=== PATIENT | male | born 1965 | race Caucasian/White ===

== ENCOUNTER 2018-08-13 18:35 | Emergency (ER) | payer OTHER ==
[2018-08-13] MEDS: CLINDAMYCIN 150 MG CAP PO (19:54)
== END 2018-08-13 19:56 | disposition home or self-care (01) ==
LOC: M ED 18:35
DX: L03.114 Cellulitis of left upper limb (principal)
CPT/HCPCS: 99283

== ENCOUNTER → 2021-12-08 | Outpatient (REF) | payer OTHER ==
[~2021-12-08] MED LIST: CLEO300C2 PO; MULT1TAB18 PO
[2021-12-08 17:27] LABS: APPEARANCE, URINE CLEAR (CLEAR); BACTERIA, URINE AUTO NEGATIVE (NEGATIVE); BILIRUBIN, URINE AUTO NEGATIVE (NEGATIVE); BLOOD, URINE BLOOD NEGATIVE (NEGATIVE); COLOR, URINE STRAW (YELLOW); GLUCOSE, URINE (UA) AUTO NEGATIVE (NEGATIVE); KETONE, URINE AUTO NEGATIVE (NEGATIVE); LEUKOCYTE ESTERASE, URINE AUTO NEGATIVE (NEGATIVE); NITRITE, URINE AUTO NEGATIVE (NEGATIVE); PROTEIN, URINE AUTO NEGATIVE (NEGATIVE); RBC, URINE AUTO 0 /HPF (0-3); SQUAMOUS EPITHELIAL CELL UR AU 0 /HPF (0-6); UROBILINOGEN, URINE AUTO 0.2 mg/dL (0.0-2.0); WBC, URINE AUTO 0 /HPF (0-3)
== END ==
LOC: M SMT 16:38
PROVIDERS: ATTEND Physician Assistant
DX: R35.1 Nocturia (principal)

== ENCOUNTER 2022-01-09 14:18 | Emergency (ER) | payer OTHER ==
[~2022-01-09] VITALS: Ht 180.3 cm; Wt 131.6 kg
[~2022-01-09 14:18] MED LIST changes: -LOSA50TA28; -TAMS1CAP17
[2022-01-09] MEDS ORDERED: LOSA50TA28 (14:43)
[2022-01-09] MEDS ORDERED: TAMS1CAP17 (14:43)
[2022-01-09 15:18] LABS: BASO # 0.1 10^3/uL (0.0-0.2); EOS # 0.2 10^3/uL (0.0-0.5); EOS % 2.6 % (0.0-3.0); HEMATOCRIT 43.1 % (42.0-52.0); HEMOGLOBIN 14.3 g/dl (13.5-17.5); LYMPH # 1.8 10^3/uL (1.5-5.0); LYMPH % 30.1 % (24.0-44.0); MEAN CORPUSCULAR HEMOGLOBIN 28.9 pg (27.0-33.0); MEAN CORPUSCULAR HGB CONC 33.2 g/dl (32.0-36.5); MEAN CORPUSCULAR VOLUME 87.1 fl (80.0-96.0); MONO # 0.6 10^3/uL (0.0-0.8); MONO % 9.8 % (2.0-8.0); NEUTROPHILS # 3.5 10^3/uL (1.5-8.5); NEUTROPHILS % 56.3 % (36.0-66.0); PLATELET COUNT, AUTOMATED 222 10^3/uL (150-450); RED BLOOD COUNT 4.95 10^6/uL (4.30-6.10); WHITE BLOOD COUNT 6.1 10^3/uL (4.0-10.0)
[2022-01-09 15:29] LABS: INR 0.93; PROTHROMBIN TIME 12.9 SECONDS (12.7-14.5)
[2022-01-09 15:39] LABS: CK-MB VALUE MASS < 1.0 NG/ML (<3.6); CPK CREATINE PHOSPHOKINASE 129 U/L (39-308); MB/CK RELATIVE INDEX 0.78 (< OR =4)
[2022-01-09 15:58] LABS: ALBUMIN 3.9 GM/DL (3.2-5.2); ALT/SGPT 42 U/L (12-78); BILIRUBIN,DIRECT 0.1 MG/DL (0.0-0.2); BILIRUBIN,TOTAL 0.7 MG/DL (0.2-1.0); BLOOD UREA NITROGEN 19 MG/DL (7-18); CALCIUM LEVEL 9.1 MG/DL (8.5-10.1); CARBON DIOXIDE LEVEL 32 MEQ/L (21-32); CHLORIDE LEVEL 103 MEQ/L (98-107); CREATININE FOR GFR 1.22 MG/DL (0.70-1.30); GLOMERULAR FILTRATION RATE > 60.0 (>56); GLUCOSE, FASTING 89 MG/DL (70-100); POTASSIUM SERUM 4.2 MEQ/L (3.5-5.1); SODIUM LEVEL 139 MEQ/L (136-145)
[2022-01-09 15:59] LABS: NT-PRO BNP 33 PG/ML (<125); THYROXINE (T4) 10.9 UG/DL (4.5-12.0)
[2022-01-09 17:30] VITALS: BP 151/101
[2022-01-09] MEDS ORDERED: ISOVUE-370 76% 100ML VIAL As Ordered ONE (18:49)
== END 2022-01-09 21:15 | disposition home or self-care (01) ==
LOC: M ED 14:18
DX: R06.09 Other forms of dyspnea (principal); E78.5 Hyperlipidemia, unspecified; Z79.899 Other long term (current) drug therapy
CPT/HCPCS: 36415; 71045; 71275; 80048; 80076; 82550; 82553; 83880; 84436; 84443; 85025; 85610; 93005; 93041; 94760; 99285; Q9967

== ENCOUNTER → 2022-01-09 | Outpatient (CLI) | payer OTHER ==
[~2022-01-09] MED LIST changes: +LOSA50TA28; +TAMS1CAP17
== END ==
LOC: M PLALAB 07:07
PROVIDERS: ATTEND Physician Assistant
DX: R06.02 Shortness of breath (principal)

== ENCOUNTER → 2022-01-20 | Outpatient (CLI) | payer OTHER ==
[~2022-01-20] MED LIST changes: +LOSA50TA28; +TAMS1CAP17
== END ==
LOC: M PLALAB 07:08 → M LAB 07:08
PROVIDERS: ATTEND Physician Assistant
DX: R97.20 Elevated prostate specific antigen [PSA] (principal)

== ENCOUNTER → 2022-02-14 | Outpatient (CLI) | payer OTHER ==
[~2022-02-14] MED LIST changes: -LOSA50TA28; +LOSA50TA28 PO; -TAMS1CAP17; +TAMS1CAP17 PO
[2022-02-14 15:56] LABS: ALBUMIN 3.7 GM/DL (3.2-5.2); BLOOD UREA NITROGEN 20 MG/DL (7-18); CALCIUM LEVEL 8.7 MG/DL (8.5-10.1); CARBON DIOXIDE LEVEL 28 MEQ/L (21-32); CHLORIDE LEVEL 103 MEQ/L (98-107); CREATININE FOR GFR 1.29 MG/DL (0.70-1.30); GLOMERULAR FILTRATION RATE > 60.0 (>56); GLUCOSE, FASTING 101 MG/DL (70-100); HEPATITIS B SURFACE ANTIBODY NEGATIVE (POSITIVE); IRON (FE) 72 UG/DL (65-175); PERCENT SATURATION 25.4 % (19.7-50.0); PHOSPHORUS LEVEL 2.9 MG/DL (2.5-4.9); POTASSIUM SERUM 5.4 MEQ/L (3.5-5.1); SODIUM LEVEL 138 MEQ/L (136-145); TOTAL IRON BINDING CAPACITY 283 UG/DL (250-450)
[2022-02-14 16:05] LABS: HEPATITIS B SURFACE ANTIGEN NEGATIVE (NEGATIVE)
[2022-02-14 16:32] LABS: HEPATITIS B CORE ANTIBODY IGM NEGATIVE (NEGATIVE); HEPATITIS C VIRUS ABY INDEX 0.2 INDEX (<0.8)
== END ==
LOC: M PLALAB 09:24
PROVIDERS: ATTEND Physician Assistant
DX: R74.8 Abnormal levels of other serum enzymes (principal); I10 Essential (primary) hypertension

== ENCOUNTER → 2022-02-14 | Outpatient (REF) | payer OTHER | LOC: M SMT PRO 13:03 | PROVIDERS: ATTEND Urology | DX: R97.20 Elevated prostate specific antigen [PSA] (principal) ==

== ENCOUNTER 2022-02-23 22:19 | Inpatient (IN) | payer OTHER ==
[~2022-02-23] VITALS: Ht 180.3 cm; Wt 117.6 kg
[2022-02-23] MEDS: NS 1,000 ML IV SCH (22:15)
[2022-02-23] MEDS ORDERED: ONDANSETRON 4MG 2ML VIAL IV ONE (22:30)
[2022-02-23] MEDS ORDERED: MORPHINE 4 MG/ML 1ML VIAL/SYRINGE IV ONE (22:30)
[2022-02-23] MEDS ORDERED: ONDANSETRON 4MG 2ML VIAL As Ordered ONE (22:34)
[2022-02-23] MEDS ORDERED: BOOSTRIX/ADACEL VACCINE (DIPHTH/PERTUSS/ACELL/TETANUS) 0.5ML SYR IM.IMMUN ONE (22:35)
[2022-02-23] MEDS ORDERED: ISOVUE-370 76% 100ML VIAL As Ordered ONE (22:48)
[2022-02-23 23:04] LABS: INR 1.25; PROTHROMBIN TIME 16.1 SECONDS (12.7-14.5)
[2022-02-23] MEDS ORDERED: fentaNYL 100 MCG/2 ML INJECTION IV ONE (23:05)
[2022-02-23 23:10] LABS: BASO # 0.1 10^3/uL (0.0-0.2); BASO % 0.5 % (0.0-1.0); EOS # 0.2 10^3/uL (0.0-0.5); EOS % 1.4 % (0.0-3.0); HEMATOCRIT 41.4 % (42.0-52.0); HEMOGLOBIN 13.8 g/dl (13.5-17.5); LYMPH # 2.7 10^3/uL (1.5-5.0); LYMPH % 17.4 % (24.0-44.0); MEAN CORPUSCULAR HEMOGLOBIN 29.2 pg (27.0-33.0); MEAN CORPUSCULAR HGB CONC 33.3 g/dl (32.0-36.5); MEAN CORPUSCULAR VOLUME 87.5 fl (80.0-96.0); MONO # 1.1 10^3/uL (0.0-0.8); MONO % 6.9 % (2.0-8.0); NEUTROPHILS # 11.2 10^3/uL (1.5-8.5); NEUTROPHILS % 72.4 % (36.0-66.0); PLATELET COUNT, AUTOMATED 272 10^3/uL (150-450); RED BLOOD COUNT 4.73 10^6/uL (4.30-6.10); WHITE BLOOD COUNT 15.4 10^3/uL (4.0-10.0)
[2022-02-23 23:25] LABS: ALBUMIN 3.6 GM/DL (3.2-5.2); ALT/SGPT 56 U/L (12-78); AMYLASE 39 U/L (25-115); BILIRUBIN,DIRECT < 0.1 MG/DL (0.0-0.2); BILIRUBIN,TOTAL 0.4 MG/DL (0.2-1.0); ETHYL ALCOHOL (ETHANOL) < 0.003 % (0.000-0.010); LIPASE 223 U/L (73-393); TOTAL PROTEIN 7.3 GM/DL (6.4-8.2)
[2022-02-23 23:29] LABS: CK-MB VALUE MASS 3.9 NG/ML (<3.6); MB/CK RELATIVE INDEX 0.97 (< OR =4)
[2022-02-23] MEDS ORDERED: HYDROMORPHONE HCL 0.5 MG/ 0.5 ML SYRINGE (J1170 PER 1) IV ONE (23:55)
[2022-02-24] VITALS (22 sets, daily range): BP systolic 123–158; BP diastolic 83–104; O2SAT 94–98
[2022-02-24 00:27] LABS: AMPHETAMINES LEVEL URINE NEGATIVE (NEGATIVE); BARBITURATES URINE NEGATIVE (NEGATIVE); BENZODIAZEPINES URINE NEGATIVE (NEGATIVE); CANNABINOIDS URINE NEGATIVE (NEGATIVE); COCAINE METABOLITE URINE NEGATIVE (NEGATIVE); METHADONE URINE NEGATIVE (NEGATIVE); OPIATES URINE POSITIVE (NEGATIVE); PHENCYCLIDINE URINE NEGATIVE (NEGATIVE)
[2022-02-24 00:34] LABS: APPEARANCE, URINE HAZY (CLEAR); BACTERIA, URINE AUTO NEGATIVE (NEGATIVE); BILIRUBIN, URINE AUTO NEGATIVE (NEGATIVE); BLOOD, URINE BLOOD 1+ (NEGATIVE); COLOR, URINE YELLOW (YELLOW); GLUCOSE, URINE (UA) AUTO NEGATIVE (NEGATIVE); KETONE, URINE AUTO TRACE mg/dL (NEGATIVE); LEUKOCYTE ESTERASE, URINE AUTO NEGATIVE (NEGATIVE); MUCUS, URINE SMALL (NEGATIVE); NITRITE, URINE AUTO NEGATIVE (NEGATIVE); PROTEIN, URINE AUTO 1+ mg/dL (NEGATIVE); RBC, URINE AUTO 5 /HPF (0-3); SPECIFIC GRAVITY URINE AUTO 1.021 (1.002-1.035); SQUAMOUS EPITHELIAL CELL UR AU 0 /HPF (0-6); UROBILINOGEN, URINE AUTO 0.2 mg/dL (0.0-2.0); WBC, URINE AUTO 4 /HPF (0-3)
[2022-02-24] MEDS ORDERED: SILVER SULFADIAZINE 1% CR 50 GM JAR TOP ONE (00:40)
[2022-02-24 01:40] LABS: RSV AMPLIFICATION NEGATIVE (NEGATIVE)
[2022-02-24] MEDS: NS 1,000 ML IV SCH ×4 (02:25→22:44)
[2022-02-24] MEDS ORDERED: ONDANSETRON 4MG 2ML VIAL IV PRN (02:50)
[2022-02-24] MEDS ORDERED: NALOXONE INJ 0.4MG/1ML VIAL (J2310 PER 1MG) IV PRN (02:50)
[2022-02-24] MEDS ORDERED: EPIDURAL/PCA KEYS XX PRN (02:50)
[2022-02-24] MEDS ORDERED: diphenhydrAMINE 50MG/ML VIAL (J1200) IV PRN (02:50)
[2022-02-24] MEDS ORDERED: NS 1,000 ML IV SCH (02:50)
[2022-02-24] MEDS ORDERED: HOME MED LIST COMPLETE! XX SCH (02:55)
[2022-02-24] MEDS: MORPHINE 1MG/ML IN 0.9% NACL 100ML IV BAG IV PRN (03:35)
[2022-02-24] MEDS: KETOROLAC 30 MG/ML 1ML VIAL IV SCH ×4 (04:48→21:02)
[2022-02-24 06:14] LABS: HEMATOCRIT 42.5 % (42.0-52.0); MEAN CORPUSCULAR HEMOGLOBIN 29.5 pg (27.0-33.0); MEAN CORPUSCULAR HGB CONC 32.9 g/dl (32.0-36.5); MEAN CORPUSCULAR VOLUME 89.7 fl (80.0-96.0); PLATELET COUNT, AUTOMATED 266 10^3/uL (150-450); RED BLOOD COUNT 4.74 10^6/uL (4.30-6.10); WHITE BLOOD COUNT 13.2 10^3/uL (4.0-10.0)
[2022-02-24 06:41] LABS: CREATININE FOR GFR 1.38 MG/DL (0.70-1.30); GLOMERULAR FILTRATION RATE 57.2 (>56); POTASSIUM SERUM 5.1 MEQ/L (3.5-5.1)
[2022-02-25] VITALS (19 sets, daily range): BP systolic 129–145; BP diastolic 76–90; O2SAT 94–99
[2022-02-25] MEDS: IPRATROPIUM 0.5MG/ALBUTEROL 2.5MG INH SOL UD 3ML (DUONEB) NEB SCH ×4 (01:55→19:31)
[2022-02-25] MEDS: KETOROLAC 30 MG/ML 1ML VIAL IV SCH ×4 (03:23→22:49)
[2022-02-25] MEDS: MORPHINE 1MG/ML IN 0.9% NACL 100ML IV BAG IV PRN (06:20)
[2022-02-25 08:12] LABS: HEMATOCRIT 35.7 % (42.0-52.0); MEAN CORPUSCULAR HEMOGLOBIN 29.2 pg (27.0-33.0); MEAN CORPUSCULAR HGB CONC 31.9 g/dl (32.0-36.5); MEAN CORPUSCULAR VOLUME 91.5 fl (80.0-96.0); PLATELET COUNT, AUTOMATED 170 10^3/uL (150-450); WHITE BLOOD COUNT 7.9 10^3/uL (4.0-10.0)
[2022-02-25 08:18] LABS: HEMOGLOBIN 11.4 g/dl (13.5-17.5)
[2022-02-25 08:26] LABS: BLOOD UREA NITROGEN 40 MG/DL (7-18); CALCIUM LEVEL 8.1 MG/DL (8.5-10.1); CARBON DIOXIDE LEVEL 28 MEQ/L (21-32); CHLORIDE LEVEL 109 MEQ/L (98-107); CREATININE FOR GFR 1.14 MG/DL (0.70-1.30); GLOMERULAR FILTRATION RATE > 60.0 (>56); GLUCOSE, FASTING 128 MG/DL (70-100); POTASSIUM SERUM 5.2 MEQ/L (3.5-5.1); SODIUM LEVEL 142 MEQ/L (136-145)
[2022-02-25] MEDS: NS 1,000 ML IV SCH ×2 (08:53→18:45)
[2022-02-25] MEDS ORDERED: SODIUM CHLORIDE 0.9% 1000ML IV ONE (11:00)
[2022-02-25 15:07] LABS: BLOOD UREA NITROGEN 36 MG/DL (7-18); CALCIUM LEVEL 7.9 MG/DL (8.5-10.1); CARBON DIOXIDE LEVEL 29 MEQ/L (21-32); CHLORIDE LEVEL 108 MEQ/L (98-107); CREATININE FOR GFR 1.01 MG/DL (0.70-1.30); GLOMERULAR FILTRATION RATE > 60.0 (>56); GLUCOSE, FASTING 99 MG/DL (70-100); POTASSIUM SERUM 4.6 MEQ/L (3.5-5.1); SODIUM LEVEL 139 MEQ/L (136-145)
[2022-02-26] VITALS (11 sets, daily range): BP systolic 132–145; BP diastolic 78–94; O2SAT 90–97
[2022-02-26] MEDS: IPRATROPIUM 0.5MG/ALBUTEROL 2.5MG INH SOL UD 3ML (DUONEB) NEB SCH ×4 (03:14→19:36)
[2022-02-26] MEDS: KETOROLAC 30 MG/ML 1ML VIAL IV SCH ×4 (04:26→22:03)
[2022-02-26] MEDS: NS 1,000 ML IV SCH (04:45)
[2022-02-26] MEDS: MORPHINE 1MG/ML IN 0.9% NACL 100ML IV BAG IV PRN (09:07)
[2022-02-26 10:26] LABS: HEMATOCRIT 32.5 % (42.0-52.0); HEMOGLOBIN 10.5 g/dl (13.5-17.5); MEAN CORPUSCULAR HEMOGLOBIN 29.5 pg (27.0-33.0); MEAN CORPUSCULAR HGB CONC 32.3 g/dl (32.0-36.5); MEAN CORPUSCULAR VOLUME 91.3 fl (80.0-96.0); PLATELET COUNT, AUTOMATED 145 10^3/uL (150-450); RED BLOOD COUNT 3.56 10^6/uL (4.30-6.10); WHITE BLOOD COUNT 6.7 10^3/uL (4.0-10.0)
[2022-02-26] MEDS ORDERED: MORPHINE 4 MG/ML 1ML VIAL/SYRINGE IV PRN (10:45)
[2022-02-26 10:57] LABS: BLOOD UREA NITROGEN 21 MG/DL (7-18); CALCIUM LEVEL 7.9 MG/DL (8.5-10.1); CARBON DIOXIDE LEVEL 30 MEQ/L (21-32); CHLORIDE LEVEL 107 MEQ/L (98-107); CREATININE FOR GFR 0.89 MG/DL (0.70-1.30); GLOMERULAR FILTRATION RATE > 60.0 (>56); GLUCOSE, FASTING 98 MG/DL (70-100); POTASSIUM SERUM 4.5 MEQ/L (3.5-5.1); SODIUM LEVEL 140 MEQ/L (136-145)
[2022-02-26] MEDS: BACITRACIN OINTMENT 30GM TUBE TOP PRN (13:49)
[2022-02-27] VITALS (15 sets, daily range): BP systolic 139–152; BP diastolic 78–89; O2SAT 87–99
[2022-02-27] MEDS: IPRATROPIUM 0.5MG/ALBUTEROL 2.5MG INH SOL UD 3ML (DUONEB) NEB SCH ×4 (01:32→19:21)
[2022-02-27] MEDS: PERCOCET 5MG/325MG TAB PO PRN ×3 (01:53→15:03)
[2022-02-27] MEDS: KETOROLAC 30 MG/ML 1ML VIAL IV SCH ×4 (03:59→22:00)
[2022-02-28] VITALS (18 sets, daily range): BP systolic 135–148; BP diastolic 76–84; O2SAT 91–96
[2022-02-28] MEDS: PERCOCET 5MG/325MG TAB PO PRN ×3 (00:55→14:27)
[2022-02-28] MEDS: IPRATROPIUM 0.5MG/ALBUTEROL 2.5MG INH SOL UD 3ML (DUONEB) NEB SCH ×4 (01:03→19:39)
[2022-02-28] MEDS: KETOROLAC 30 MG/ML 1ML VIAL IV SCH ×4 (04:59→21:18)
[2022-02-28 06:49] LABS: HEMATOCRIT 30.6 % (42.0-52.0); MEAN CORPUSCULAR HEMOGLOBIN 29.2 pg (27.0-33.0); MEAN CORPUSCULAR HGB CONC 32.7 g/dl (32.0-36.5); MEAN CORPUSCULAR VOLUME 89.5 fl (80.0-96.0); PLATELET COUNT, AUTOMATED 147 10^3/uL (150-450); RED BLOOD COUNT 3.42 10^6/uL (4.30-6.10); WHITE BLOOD COUNT 6.2 10^3/uL (4.0-10.0)
[2022-02-28 07:08] LABS: BLOOD UREA NITROGEN 26 MG/DL (7-18); CALCIUM LEVEL 8.3 MG/DL (8.5-10.1); CARBON DIOXIDE LEVEL 27 MEQ/L (21-32); CHLORIDE LEVEL 109 MEQ/L (98-107); CREATININE FOR GFR 0.95 MG/DL (0.70-1.30); GLOMERULAR FILTRATION RATE > 60.0 (>56); GLUCOSE, FASTING 106 MG/DL (70-100); POTASSIUM SERUM 4.4 MEQ/L (3.5-5.1); SODIUM LEVEL 143 MEQ/L (136-145)
[2022-02-28] MEDS: ENOXAPARIN 40MG/0.4ML SYRINGE (J1650 PER 10MG) SC SCH (13:48)
[2022-02-28] MEDS: BACITRACIN OINTMENT 30GM TUBE TOP PRN (16:34)
[2022-02-28] MEDS: PIPERACILLIN/TAZOBACTAM SOD 3.375 GM in D5W MINI-BAG PLUS 50 ML IV SCH (17:29)
[2022-03-01] VITALS (23 sets, daily range): BP systolic 139–172; BP diastolic 74–98; O2SAT 89–97
[2022-03-01] MEDS: PERCOCET 5MG/325MG TAB PO PRN ×2 (00:07→14:11)
[2022-03-01] MEDS: PIPERACILLIN/TAZOBACTAM SOD 3.375 GM in D5W MINI-BAG PLUS 50 ML IV SCH ×5 (00:07→23:56)
[2022-03-01] MEDS ORDERED: **hydrALAZINE** 10 MG TAB PO ONE (01:40)
[2022-03-01] MEDS: IPRATROPIUM 0.5MG/ALBUTEROL 2.5MG INH SOL UD 3ML (DUONEB) NEB SCH ×4 (02:47→19:47)
[2022-03-01 03:54] LABS: BASO % 0.6 % (0.0-1.0); EOS # 0.4 10^3/uL (0.0-0.5); EOS % 6.1 % (0.0-3.0); HEMATOCRIT 29.2 % (42.0-52.0); HEMOGLOBIN 9.5 g/dl (13.5-17.5); LYMPH # 1.7 10^3/uL (1.5-5.0); LYMPH % 22.8 % (24.0-44.0); MEAN CORPUSCULAR HEMOGLOBIN 28.9 pg (27.0-33.0); MEAN CORPUSCULAR HGB CONC 32.5 g/dl (32.0-36.5); MEAN CORPUSCULAR VOLUME 88.8 fl (80.0-96.0); MONO # 0.7 10^3/uL (0.0-0.8); MONO % 9.4 % (2.0-8.0); NEUTROPHILS # 4.4 10^3/uL (1.5-8.5); NEUTROPHILS % 60.3 % (36.0-66.0); PLATELET COUNT, AUTOMATED 161 10^3/uL (150-450); RED BLOOD COUNT 3.29 10^6/uL (4.30-6.10); WHITE BLOOD COUNT 7.2 10^3/uL (4.0-10.0)
[2022-03-01 04:22] LABS: BLOOD UREA NITROGEN 25 MG/DL (7-18); C REACTIVE PROTEIN QUANTITATIV 8.85 MG/DL (0.00-0.30); CALCIUM LEVEL 8.4 MG/DL (8.5-10.1); CARBON DIOXIDE LEVEL 30 MEQ/L (21-32); CHLORIDE LEVEL 105 MEQ/L (98-107); CREATININE FOR GFR 1.13 MG/DL (0.70-1.30); GLOMERULAR FILTRATION RATE > 60.0 (>56); GLUCOSE, FASTING 111 MG/DL (70-100); POTASSIUM SERUM 4.3 MEQ/L (3.5-5.1); SODIUM LEVEL 139 MEQ/L (136-145)
[2022-03-01] MEDS: ENOXAPARIN 40MG/0.4ML SYRINGE (J1650 PER 10MG) SC SCH (08:19)
[2022-03-01] MEDS: BACITRACIN OINTMENT 30GM TUBE TOP PRN (14:27)
[2022-03-01] MEDS: GABAPENTIN 100 MG CAP PO SCH ×2 (15:07→21:37)
[2022-03-01] MEDS: LIDOCAINE 5% (LIDODERM) PATCH TD SCH (15:08)
[2022-03-01] MEDS: ACETAMINOPHEN 1000MG 100ML IV BTL (OFIRMEV) (J0131 PER 10MG) IV SCH ×2 (17:14→22:55)
[2022-03-01] MEDS: **NOTE PATIENT COMMENT** MISC XX SCH (21:14)
[2022-03-02] VITALS (29 sets, daily range): BP systolic 123–172; BP diastolic 77–98; O2SAT 90–99
[2022-03-02] MEDS: IPRATROPIUM 0.5MG/ALBUTEROL 2.5MG INH SOL UD 3ML (DUONEB) NEB SCH ×4 (00:57→20:22)
[2022-03-02] MEDS: ACETAMINOPHEN 1000MG 100ML IV BTL (OFIRMEV) (J0131 PER 10MG) IV SCH ×2 (05:07→11:28)
[2022-03-02] MEDS: PIPERACILLIN/TAZOBACTAM SOD 3.375 GM in D5W MINI-BAG PLUS 50 ML IV SCH ×3 (06:20→18:40)
[2022-03-02] MEDS: GABAPENTIN 100 MG CAP PO SCH ×3 (06:20→21:53)
[2022-03-02 07:49] LABS: HEMATOCRIT 31.1 % (42.0-52.0); HEMOGLOBIN 10.2 g/dl (13.5-17.5); MEAN CORPUSCULAR HEMOGLOBIN 28.7 pg (27.0-33.0); MEAN CORPUSCULAR HGB CONC 32.8 g/dl (32.0-36.5); MEAN CORPUSCULAR VOLUME 87.6 fl (80.0-96.0); PLATELET COUNT, AUTOMATED 184 10^3/uL (150-450); RED BLOOD COUNT 3.55 10^6/uL (4.30-6.10); WHITE BLOOD COUNT 6.8 10^3/uL (4.0-10.0)
[2022-03-02 08:14] LABS: BLOOD UREA NITROGEN 23 MG/DL (7-18); CALCIUM LEVEL 8.4 MG/DL (8.5-10.1); CARBON DIOXIDE LEVEL 26 MEQ/L (21-32); CHLORIDE LEVEL 108 MEQ/L (98-107); CREATININE FOR GFR 1.19 MG/DL (0.70-1.30); GLOMERULAR FILTRATION RATE > 60.0 (>56); GLUCOSE, FASTING 142 MG/DL (70-100); POTASSIUM SERUM 4.1 MEQ/L (3.5-5.1); SODIUM LEVEL 141 MEQ/L (136-145)
[2022-03-02] MEDS: LIDOCAINE 5% (LIDODERM) PATCH TD SCH (09:09)
[2022-03-02] MEDS: ENOXAPARIN 40MG/0.4ML SYRINGE (J1650 PER 10MG) SC SCH (09:10)
[2022-03-02 16:22] LABS: HEMATOCRIT 33.9 % (42.0-52.0)
[2022-03-02] MEDS: MORPHINE 4 MG/ML 1ML VIAL/SYRINGE IV PRN ×2 (16:34→18:40)
[2022-03-02] MEDS ORDERED: MORPHINE 4 MG/ML 1ML VIAL/SYRINGE IV PRN (19:10)
[2022-03-02] MEDS: PERCOCET 5MG/325MG TAB PO PRN (21:53)
[2022-03-02] MEDS: **NOTE PATIENT COMMENT** MISC XX SCH (21:54)
[2022-03-03] VITALS (14 sets, daily range): BP systolic 120–144; BP diastolic 73–86; O2SAT 91–98
[2022-03-03] MEDS: PIPERACILLIN/TAZOBACTAM SOD 3.375 GM in D5W MINI-BAG PLUS 50 ML IV SCH ×4 (00:32→17:35)
[2022-03-03] MEDS: IPRATROPIUM 0.5MG/ALBUTEROL 2.5MG INH SOL UD 3ML (DUONEB) NEB SCH ×4 (03:01→19:15)
[2022-03-03 05:52] LABS: HEMATOCRIT 32.9 % (42.0-52.0); HEMOGLOBIN 10.5 g/dl (13.5-17.5); MEAN CORPUSCULAR HEMOGLOBIN 28.4 pg (27.0-33.0); MEAN CORPUSCULAR HGB CONC 31.9 g/dl (32.0-36.5); MEAN CORPUSCULAR VOLUME 88.9 fl (80.0-96.0); PLATELET COUNT, AUTOMATED 223 10^3/uL (150-450); WHITE BLOOD COUNT 7.2 10^3/uL (4.0-10.0)
[2022-03-03] MEDS: GABAPENTIN 100 MG CAP PO SCH ×3 (06:13→22:26)
[2022-03-03 06:24] LABS: BLOOD UREA NITROGEN 22 MG/DL (7-18); CALCIUM LEVEL 8.4 MG/DL (8.5-10.1); CARBON DIOXIDE LEVEL 26 MEQ/L (21-32); CHLORIDE LEVEL 107 MEQ/L (98-107); CREATININE FOR GFR 1.12 MG/DL (0.70-1.30); GLOMERULAR FILTRATION RATE > 60.0 (>56); GLUCOSE, FASTING 111 MG/DL (70-100); POTASSIUM SERUM 4.2 MEQ/L (3.5-5.1); SODIUM LEVEL 141 MEQ/L (136-145)
[2022-03-03] MEDS: LIDOCAINE 5% (LIDODERM) PATCH TD SCH (09:16)
[2022-03-03] MEDS: KETOROLAC 30 MG/ML 1ML VIAL IV SCH ×2 (12:55→18:52)
[2022-03-03] MEDS: SIMETHICONE 80MG CHEW TAB PO SCH ×2 (17:35→20:27)
[2022-03-03] MEDS: **NOTE PATIENT COMMENT** MISC XX SCH (20:27)
[2022-03-04] VITALS (16 sets, daily range): BP systolic 125–144; BP diastolic 60–92; O2SAT 90–95
[2022-03-04] MEDS: PIPERACILLIN/TAZOBACTAM SOD 3.375 GM in D5W MINI-BAG PLUS 50 ML IV SCH ×4 (00:41→17:46)
[2022-03-04] MEDS: KETOROLAC 30 MG/ML 1ML VIAL IV SCH ×4 (00:41→19:00)
[2022-03-04] MEDS ORDERED: BISACODYL 10 MG SUPP PR PRN (01:50)
[2022-03-04] MEDS ORDERED: LEVALBUTEROL 1.25 MG/0.5 ML CONCENTRATE NEB NEB PRN (01:50)
[2022-03-04] MEDS: IPRATROPIUM 0.5MG/ALBUTEROL 2.5MG INH SOL UD 3ML (DUONEB) NEB SCH (01:59)
[2022-03-04] MEDS: LEVALBUTEROL 1.25 MG/0.5 ML CONCENTRATE NEB NEB SCH ×4 (02:00→19:33)
[2022-03-04] MEDS: GABAPENTIN 100 MG CAP PO SCH ×3 (06:37→21:24)
[2022-03-04] MEDS: DOCUSATE SODIUM 100MG CAPSULE PO SCH ×2 (08:24→21:24)
[2022-03-04] MEDS: SIMETHICONE 80MG CHEW TAB PO SCH ×4 (08:24→21:24)
[2022-03-04] MEDS: MOM 30ML SUSPENSION UDC PO SCH (08:24)
[2022-03-04] MEDS: PANTOPRAZOLE 40MG TAB (PROTONIX) PO SCH (08:25)
[2022-03-04] MEDS: LIDOCAINE 5% (LIDODERM) PATCH TD SCH (08:25)
[2022-03-04 08:57] LABS: BASO # 0.1 10^3/uL (0.0-0.2); BASO % 0.7 % (0.0-1.0); EOS # 0.5 10^3/uL (0.0-0.5); EOS % 6.7 % (0.0-3.0); HEMATOCRIT 32.7 % (42.0-52.0); HEMOGLOBIN 10.5 g/dl (13.5-17.5); LYMPH # 1.3 10^3/uL (1.5-5.0); LYMPH % 18.3 % (24.0-44.0); MEAN CORPUSCULAR HEMOGLOBIN 28.6 pg (27.0-33.0); MEAN CORPUSCULAR HGB CONC 32.1 g/dl (32.0-36.5); MEAN CORPUSCULAR VOLUME 89.1 fl (80.0-96.0); MONO # 0.8 10^3/uL (0.0-0.8); MONO % 10.7 % (2.0-8.0); NEUTROPHILS # 4.5 10^3/uL (1.5-8.5); NEUTROPHILS % 62.1 % (36.0-66.0); PLATELET COUNT, AUTOMATED 249 10^3/uL (150-450); RED BLOOD COUNT 3.67 10^6/uL (4.30-6.10); WHITE BLOOD COUNT 7.2 10^3/uL (4.0-10.0)
[2022-03-04 09:17] LABS: BLOOD UREA NITROGEN 23 MG/DL (7-18); CALCIUM LEVEL 8.6 MG/DL (8.5-10.1); CARBON DIOXIDE LEVEL 26 MEQ/L (21-32); CHLORIDE LEVEL 107 MEQ/L (98-107); CREATININE FOR GFR 1.13 MG/DL (0.70-1.30); GLOMERULAR FILTRATION RATE > 60.0 (>56); GLUCOSE, FASTING 119 MG/DL (70-100); POTASSIUM SERUM 4.4 MEQ/L (3.5-5.1); SODIUM LEVEL 140 MEQ/L (136-145)
[2022-03-04] MEDS: ENOXAPARIN 40MG/0.4ML SYRINGE (J1650 PER 10MG) SC SCH (13:30)
[2022-03-04] MEDS: **NOTE PATIENT COMMENT** MISC XX SCH (21:24)
[2022-03-04] MEDS ORDERED: CALCIUM CARBONATE 500 MG CHEW U/D PO ONE (23:00)
[2022-03-05] VITALS (13 sets, daily range): BP systolic 127–139; BP diastolic 63–89; O2SAT 90–95
[2022-03-05] MEDS: PIPERACILLIN/TAZOBACTAM SOD 3.375 GM in D5W MINI-BAG PLUS 50 ML IV SCH ×4 (00:42→17:56)
[2022-03-05] MEDS: KETOROLAC 30 MG/ML 1ML VIAL IV SCH ×4 (00:42→19:54)
[2022-03-05] MEDS: LEVALBUTEROL 1.25 MG/0.5 ML CONCENTRATE NEB NEB SCH ×4 (01:21→20:09)
[2022-03-05] MEDS: GABAPENTIN 100 MG CAP PO SCH ×3 (06:37→21:23)
[2022-03-05 06:44] LABS: BASO # 0.1 10^3/uL (0.0-0.2); BASO % 1.2 % (0.0-1.0); EOS # 0.5 10^3/uL (0.0-0.5); EOS % 7.3 % (0.0-3.0); HEMATOCRIT 32.7 % (42.0-52.0); HEMOGLOBIN 10.5 g/dl (13.5-17.5); LYMPH # 1.6 10^3/uL (1.5-5.0); LYMPH % 21.1 % (24.0-44.0); MEAN CORPUSCULAR HEMOGLOBIN 28.8 pg (27.0-33.0); MEAN CORPUSCULAR HGB CONC 32.1 g/dl (32.0-36.5); MEAN CORPUSCULAR VOLUME 89.8 fl (80.0-96.0); MONO # 0.7 10^3/uL (0.0-0.8); MONO % 9.5 % (2.0-8.0); NEUTROPHILS # 4.4 10^3/uL (1.5-8.5); NEUTROPHILS % 59.7 % (36.0-66.0); PLATELET COUNT, AUTOMATED 280 10^3/uL (150-450); RED BLOOD COUNT 3.64 10^6/uL (4.30-6.10); WHITE BLOOD COUNT 7.4 10^3/uL (4.0-10.0)
[2022-03-05 07:11] LABS: BLOOD UREA NITROGEN 24 MG/DL (7-18); CREATININE FOR GFR 1.11 MG/DL (0.70-1.30); GLUCOSE, FASTING 103 MG/DL (70-100)
[2022-03-05 07:12] LABS: CALCIUM LEVEL 8.7 MG/DL (8.5-10.1); CARBON DIOXIDE LEVEL 27 MEQ/L (21-32); CHLORIDE LEVEL 109 MEQ/L (98-107); GLOMERULAR FILTRATION RATE > 60.0 (>56); POTASSIUM SERUM 4.5 MEQ/L (3.5-5.1); SODIUM LEVEL 141 MEQ/L (136-145)
[2022-03-05] MEDS: SIMETHICONE 80MG CHEW TAB PO SCH ×4 (08:03→21:23)
[2022-03-05] MEDS: ENOXAPARIN 40MG/0.4ML SYRINGE (J1650 PER 10MG) SC SCH (08:03)
[2022-03-05] MEDS: DOCUSATE SODIUM 100MG CAPSULE PO SCH ×2 (08:03→21:23)
[2022-03-05] MEDS: MOM 30ML SUSPENSION UDC PO SCH (08:03)
[2022-03-05] MEDS: LIDOCAINE 5% (LIDODERM) PATCH TD SCH (08:04)
[2022-03-05] MEDS: PANTOPRAZOLE 40MG TAB (PROTONIX) PO SCH (08:04)
[2022-03-05] MEDS: **NOTE PATIENT COMMENT** MISC XX SCH (21:23)
[2022-03-06] MEDS: KETOROLAC 30 MG/ML 1ML VIAL IV SCH ×2 (01:05→07:49)
[2022-03-06] MEDS: PIPERACILLIN/TAZOBACTAM SOD 3.375 GM in D5W MINI-BAG PLUS 50 ML IV SCH ×3 (01:05→12:10)
[2022-03-06] MEDS: LEVALBUTEROL 1.25 MG/0.5 ML CONCENTRATE NEB NEB SCH ×2 (02:00→07:52)
[2022-03-06 04:12] VITALS: BP 151/83
[2022-03-06 05:30] LABS: BASO # 0.1 10^3/uL (0.0-0.2); BASO % 1.1 % (0.0-1.0); EOS # 0.7 10^3/uL (0.0-0.5); EOS % 9.5 % (0.0-3.0); HEMATOCRIT 30.9 % (42.0-52.0); HEMOGLOBIN 9.9 g/dl (13.5-17.5); LYMPH # 1.6 10^3/uL (1.5-5.0); LYMPH % 21.9 % (24.0-44.0); MEAN CORPUSCULAR HEMOGLOBIN 28.9 pg (27.0-33.0); MEAN CORPUSCULAR VOLUME 90.4 fl (80.0-96.0); MONO # 0.7 10^3/uL (0.0-0.8); MONO % 10.2 % (2.0-8.0); NEUTROPHILS % 55.4 % (36.0-66.0); PLATELET COUNT, AUTOMATED 290 10^3/uL (150-450); RED BLOOD COUNT 3.42 10^6/uL (4.30-6.10); WHITE BLOOD COUNT 7.3 10^3/uL (4.0-10.0)
[2022-03-06 05:51] LABS: BLOOD UREA NITROGEN 23 MG/DL (7-18); CARBON DIOXIDE LEVEL 28 MEQ/L (21-32); CHLORIDE LEVEL 109 MEQ/L (98-107); CREATININE FOR GFR 1.07 MG/DL (0.70-1.30); GLOMERULAR FILTRATION RATE > 60.0 (>56); GLUCOSE, FASTING 98 MG/DL (70-100); POTASSIUM SERUM 4.6 MEQ/L (3.5-5.1); SODIUM LEVEL 141 MEQ/L (136-145)
[2022-03-06 05:52] LABS: CALCIUM LEVEL 8.6 MG/DL (8.5-10.1)
[2022-03-06] MEDS: GABAPENTIN 100 MG CAP PO SCH (05:54)
[2022-03-06] MEDS: MOM 30ML SUSPENSION UDC PO SCH (07:48)
[2022-03-06] MEDS: LIDOCAINE 5% (LIDODERM) PATCH TD SCH (07:49)
[2022-03-06] MEDS: PANTOPRAZOLE 40MG TAB (PROTONIX) PO SCH (07:50)
[2022-03-06] MEDS: ENOXAPARIN 40MG/0.4ML SYRINGE (J1650 PER 10MG) SC SCH (07:50)
[2022-03-06] MEDS: SIMETHICONE 80MG CHEW TAB PO SCH (07:50)
[2022-03-06] MEDS: DOCUSATE SODIUM 100MG CAPSULE PO SCH (07:50)
[2022-03-06] MEDS ORDERED: PERCOCET PO (10:17)
[2022-03-06] MEDS ORDERED: GABA-1171 PO (10:17)
== END 2022-03-06 13:33 | disposition home or self-care (01) | DRG 135 ==
LOC: M ED 22:19 → M ED INP 02-24 01:12 → M PCU 02-24 03:14
PROVIDERS: ADMIT Surgery; ATTEND Surgery
PROC: 0W9B30Z Drainage of Left Pleural Cavity with Drainage Device, Percutaneous Approach (ICD-10-PCS; principal; 2022-03-02 14:26)
PROC: B246ZZZ Ultrasonography of Right and Left Heart (ICD-10-PCS; 2022-03-05)
DX: S22.42XA Multiple fractures of ribs, left side, initial encounter for closed fracture (principal); S27.2XXA Traumatic hemopneumothorax, initial encounter; N40.0 Benign prostatic hyperplasia without lower urinary tract symptoms; M43.20 Fusion of spine, site unspecified; E66.9 Obesity, unspecified; V20.0XXA Motorcycle driver injured in collision with pedestrian or animal in nontraffic accident, initial encounter; M62.82 Rhabdomyolysis; S60.511A Abrasion of right hand, initial encounter; S60.512A Abrasion of left hand, initial encounter; S70.212A Abrasion, left hip, initial encounter; S70.211A Abrasion, right hip, initial encounter; Z20.822 Contact with and (suspected) exposure to COVID-19; J91.8 Pleural effusion in other conditions classified elsewhere; D64.9 Anemia, unspecified

== ENCOUNTER 2022-03-27 18:54 | Inpatient (IN) | payer OTHER ==
[~2022-03-27] VITALS: Ht 180.3 cm; Wt 125.9 kg
[~2022-03-27 18:54] MED LIST changes: +GABA-1171 PO; +PERCOCET PO
[2022-03-27] MEDS ORDERED: REPA140I SC (19:01)
[2022-03-27 21:09] LABS: BASO # 0.1 10^3/uL (0.0-0.2); BASO % 0.7 % (0.0-1.0); EOS # 0.6 10^3/uL (0.0-0.5); HEMATOCRIT 37.3 % (42.0-52.0); LYMPH # 1.7 10^3/uL (1.5-5.0); MEAN CORPUSCULAR HEMOGLOBIN 28.5 pg (27.0-33.0); MEAN CORPUSCULAR HGB CONC 32.2 g/dl (32.0-36.5); MEAN CORPUSCULAR VOLUME 88.6 fl (80.0-96.0); MONO # 0.8 10^3/uL (0.0-0.8); MONO % 9.8 % (2.0-8.0); NEUTROPHILS # 4.8 10^3/uL (1.5-8.5); NEUTROPHILS % 60.1 % (36.0-66.0); PLATELET COUNT, AUTOMATED 170 10^3/uL (150-450); RED BLOOD COUNT 4.21 10^6/uL (4.30-6.10)
[2022-03-27 21:26] LABS: INR 1.02; PROTHROMBIN TIME 13.8 SECONDS (12.7-14.5)
[2022-03-27 21:27] LABS: PARTIAL THROMBOPLASTIN TIME 30.5 SECONDS (25.9-37.0)
[2022-03-27] MEDS ORDERED: ISOVUE-370 76% 100ML VIAL As Ordered ONE (21:28)
[2022-03-27 21:34] LABS: ALBUMIN 3.5 GM/DL (3.2-5.2); BILIRUBIN,DIRECT 0.1 MG/DL (0.0-0.2); BILIRUBIN,TOTAL 0.5 MG/DL (0.2-1.0); TOTAL PROTEIN 7.3 GM/DL (6.4-8.2)
[2022-03-27] MEDS ORDERED: HEPARIN DRIP 25,000 UNITS in IV 1 EA IV SCH (22:10)
[2022-03-27] MEDS ORDERED: HEPARIN SOD (PORCINE) 5000UNITS/ML 1ML VIAL/SYRINGE IV ONE (22:10)
[2022-03-28] MEDS ORDERED: NS 500 ML IV ONE (02:25)
[2022-03-28] MEDS ORDERED: HEPARIN SOD (PORCINE) 5000UNITS/ML 1ML VIAL/SYRINGE IV PRN (02:30)
[2022-03-28 02:49] LABS: RSV AMPLIFICATION NEGATIVE (NEGATIVE)
[2022-03-28] MEDS ORDERED: HOME MED LIST COMPLETE! XX SCH (03:20)
[2022-03-28] MEDS ORDERED: SFHIBU200 PO (03:20)
[2022-03-28] MEDS ORDERED: ASPI-264 PO (03:20)
[2022-03-28] MEDS ORDERED: ACET-897 PO (03:20)
[2022-03-28 04:00] VITALS: BP 135/89
[2022-03-28] MEDS: HEPARIN DRIP 25,000 UNITS in IV 1 EA IV SCH ×2 (04:14→12:16)
[2022-03-28 05:23] LABS: HEMATOCRIT 35.2 % (42.0-52.0); HEMOGLOBIN 11.4 g/dl (13.5-17.5); MEAN CORPUSCULAR HEMOGLOBIN 28.7 pg (27.0-33.0); MEAN CORPUSCULAR HGB CONC 32.4 g/dl (32.0-36.5); MEAN CORPUSCULAR VOLUME 88.7 fl (80.0-96.0); PLATELET COUNT, AUTOMATED 154 10^3/uL (150-450); RED BLOOD COUNT 3.97 10^6/uL (4.30-6.10); WHITE BLOOD COUNT 6.5 10^3/uL (4.0-10.0)
[2022-03-28 05:36] LABS: INR 1.05; PROTHROMBIN TIME 14.1 SECONDS (12.7-14.5)
[2022-03-28 05:46] LABS: PARTIAL THROMBOPLASTIN TIME 125.3 SECONDS (25.9-37.0)
[2022-03-28 06:06] LABS: ALBUMIN 3.3 GM/DL (3.2-5.2); ALT/SGPT 45 U/L (12-78); BILIRUBIN,TOTAL 0.4 MG/DL (0.2-1.0); BLOOD UREA NITROGEN 14 MG/DL (7-18); CALCIUM LEVEL 8.7 MG/DL (8.5-10.1); CARBON DIOXIDE LEVEL 23 MEQ/L (21-32); CHLORIDE LEVEL 109 MEQ/L (98-107); GLOMERULAR FILTRATION RATE > 60.0 (>56); GLUCOSE, FASTING 122 MG/DL (70-100); POTASSIUM SERUM 4.1 MEQ/L (3.5-5.1); SODIUM LEVEL 142 MEQ/L (136-145); TOTAL PROTEIN 6.8 GM/DL (6.4-8.2)
[2022-03-28 07:41] VITALS: BP 143/89
[2022-03-28 11:54] VITALS: BP 134/87
[2022-03-28] MEDS: ACETAMINOPHEN TAB 650MG DOSE (2X325MG) PO PRN ×2 (15:23→21:25)
[2022-03-28 15:56] VITALS: BP 138/87
[2022-03-28] MEDS ORDERED: MORPHINE 2 MG/ML 1ML VIAL IV ONE (17:25)
[2022-03-28 19:02] LABS: HEMATOCRIT 36.1 % (42.0-52.0); HEMOGLOBIN 11.7 g/dl (13.5-17.5)
[2022-03-28 20:00] VITALS: BP 139/98
[2022-03-29] VITALS: BP 143/99
[2022-03-29] MEDS: ACETAMINOPHEN TAB 650MG DOSE (2X325MG) PO PRN (03:32)
[2022-03-29 04:00] VITALS: BP 138/92
[2022-03-29] MEDS: HEPARIN DRIP 25,000 UNITS in IV 1 EA IV SCH ×2 (04:31→09:35)
[2022-03-29 07:13] LABS: HEMATOCRIT 37.2 % (42.0-52.0); MEAN CORPUSCULAR HEMOGLOBIN 28.4 pg (27.0-33.0); MEAN CORPUSCULAR HGB CONC 32.3 g/dl (32.0-36.5); MEAN CORPUSCULAR VOLUME 87.9 fl (80.0-96.0); PLATELET COUNT, AUTOMATED 171 10^3/uL (150-450); RED BLOOD COUNT 4.23 10^6/uL (4.30-6.10); WHITE BLOOD COUNT 7.5 10^3/uL (4.0-10.0)
[2022-03-29 07:28] VITALS: BP 135/93
[2022-03-29 07:51] LABS: ALBUMIN 3.1 GM/DL (3.2-5.2); ALT/SGPT 42 U/L (12-78); BILIRUBIN,TOTAL 0.5 MG/DL (0.2-1.0); BLOOD UREA NITROGEN 12 MG/DL (7-18); CALCIUM LEVEL 8.9 MG/DL (8.5-10.1); CARBON DIOXIDE LEVEL 25 MEQ/L (21-32); CHLORIDE LEVEL 106 MEQ/L (98-107); CREATININE FOR GFR 0.97 MG/DL (0.70-1.30); GLOMERULAR FILTRATION RATE > 60.0 (>56); GLUCOSE, FASTING 130 MG/DL (70-100); POTASSIUM SERUM 4.1 MEQ/L (3.5-5.1); SODIUM LEVEL 139 MEQ/L (136-145); TOTAL PROTEIN 6.8 GM/DL (6.4-8.2)
[2022-03-29 11:42] VITALS: BP 137/88
[2022-03-29] MEDS ORDERED: XARE15TA PO (12:19)
[2022-03-29] MEDS ORDERED: RIVAROXABAN 15MG TAB (XARELTO) PO ONE (14:00)
== END 2022-03-29 15:30 | disposition home or self-care (01) | DRG 134 ==
LOC: M ED 18:54 → M PCU 03-28 02:30 → ENRESERV 03-28 02:49
PROVIDERS: ADMIT Internal Medicine; ATTEND Internal Medicine
DX: I26.94 Multiple subsegmental thrombotic pulmonary emboli without acute cor pulmonale (principal); D72.10 Eosinophilia, unspecified; E78.00 Pure hypercholesterolemia, unspecified; D64.9 Anemia, unspecified; I82.411 Acute embolism and thrombosis of right femoral vein; I82.431 Acute embolism and thrombosis of right popliteal vein; N40.0 Benign prostatic hyperplasia without lower urinary tract symptoms; Z79.899 Other long term (current) drug therapy; Z87.81 Personal history of (healed) traumatic fracture

== ENCOUNTER → 2022-05-08 | Outpatient (CLI) | payer OTHER ==
[~2022-05-08] MED LIST changes: +ACET-897 PO; +ASPI-264 PO; +REPA140I SC; +SFHIBU200 PO; +XARE15TA PO
== END ==
LOC: M ADAMS 09:18
PROVIDERS: ATTEND Physician Assistant
DX: M51.34 Other intervertebral disc degeneration, thoracic region (principal); M25.78 Osteophyte, vertebrae

== ENCOUNTER → 2022-05-10 | Outpatient (REF) | payer OTHER ==
[2022-05-10 14:16] LABS: HEMOGLOBIN 14.1 g/dl (13.5-17.5); MEAN CORPUSCULAR HEMOGLOBIN 27.6 pg (27.0-33.0); MEAN CORPUSCULAR HGB CONC 31.3 g/dl (32.0-36.5); MEAN CORPUSCULAR VOLUME 88.1 fl (80.0-96.0); PLATELET COUNT, AUTOMATED 284 10^3/uL (150-450); RED BLOOD COUNT 5.11 10^6/uL (4.30-6.10); WHITE BLOOD COUNT 5.1 10^3/uL (4.0-10.0)
[2022-05-10 15:04] LABS: BLOOD UREA NITROGEN 16 MG/DL (7-18); CREATININE FOR GFR 1.13 MG/DL (0.70-1.30); GLOMERULAR FILTRATION RATE > 60.0 (>56)
== END ==
LOC: M LAB REF 13:01
PROVIDERS: ATTEND Internal Medicine Pulmonary Disease
DX: R06.00 Dyspnea, unspecified (principal)

== ENCOUNTER → 2022-06-14 | Outpatient (CLI) | payer OTHER | LOC: M CARPUL 13:24 | PROVIDERS: ATTEND Physician Assistant | DX: R06.02 Shortness of breath (principal); R94.31 Abnormal electrocardiogram [ECG] [EKG] ==

== ENCOUNTER → 2022-07-04 | Outpatient (REF) | payer OTHER | LOC: M SFHCDERM 12:52 | PROVIDERS: ATTEND Nurse Practitioner Family | DX: C44.319 Basal cell carcinoma of skin of other parts of face (principal) ==

== ENCOUNTER → 2022-09-11 | Outpatient (CLI) | payer OTHER | LOC: M ADAMS 10:10 | PROVIDERS: ATTEND Physician Assistant | DX: R91.8 Other nonspecific abnormal finding of lung field (principal); Z87.81 Personal history of (healed) traumatic fracture ==

== ENCOUNTER → 2022-09-11 | Outpatient (REF) | payer OTHER ==
[2022-09-11 12:54] LABS: BASO # 0.1 10^3/uL (0.0-0.2); BASO % 1.6 % (0.0-1.0); EOS # 0.2 10^3/uL (0.0-0.5); EOS % 2.6 % (0.0-3.0); HEMATOCRIT 46.7 % (42.0-52.0); HEMOGLOBIN 14.9 g/dl (13.5-17.5); LYMPH # 2.3 10^3/uL (1.5-5.0); LYMPH % 36.7 % (24.0-44.0); MEAN CORPUSCULAR HEMOGLOBIN 28.1 pg (27.0-33.0); MEAN CORPUSCULAR HGB CONC 31.9 g/dl (32.0-36.5); MEAN CORPUSCULAR VOLUME 88.1 fl (80.0-96.0); MONO # 0.6 10^3/uL (0.0-0.8); MONO % 8.8 % (2.0-8.0); NEUTROPHILS # 3.1 10^3/uL (1.5-8.5); PLATELET COUNT, AUTOMATED 219 10^3/uL (150-450); WHITE BLOOD COUNT 6.3 10^3/uL (4.0-10.0)
[2022-09-11 13:20] LABS: CREATININE, URINE 134.7 MG/DL; MALB URINE SIEMENS < 3.0 MG/DL; MAU/CREAT RATIO 2.2 MCG/MG (0.0-30.0); PROSTATIC SPECIFIC AG MONITOR 3.28 NG/ML (< 4.00)
[2022-09-11 13:24] LABS: ALBUMIN 4.1 G/DL (3.2-5.2); BILIRUBIN,TOTAL 0.6 MG/DL (0.3-1.2); CALCIUM LEVEL 9.2 MG/DL (8.5-10.1); CHOLESTEROL RISK RATIO 6.49 (<5); CREATININE FOR GFR 1.35 MG/DL (0.70-1.30); GLOMERULAR FILTRATION RATE 58.4 (>56); HDL CHOLESTEROL 39.4 MG/DL (>40); LDL CHOLESTEROL 190.2 MG/DL (<100); POTASSIUM SERUM 5.7 MMOL/L (3.5-5.1); TOTAL PROTEIN 7.3 G/DL (5.7-8.2)
[2022-09-11 13:25] LABS: TOTAL 25(OH) VITAMIN D 27.7 NG/ML (20.0-100.0)
[2022-09-11 13:46] LABS: HEMOGLOBIN A1c 5.5 % (4.0-6.0)
== END ==
LOC: M SFHCADAM 10:05
PROVIDERS: ATTEND Physician Assistant
DX: R74.8 Abnormal levels of other serum enzymes (principal); E78.2 Mixed hyperlipidemia; I10 Essential (primary) hypertension; E55.9 Vitamin D deficiency, unspecified; R73.03 Prediabetes; R97.20 Elevated prostate specific antigen [PSA]

== ENCOUNTER → 2022-10-18 | Outpatient (CLI) | payer OTHER ==
[~2022-10-18] MED LIST changes: +ISOVUE-370 76% 100ML VIAL As Ordered ONE
== END ==
LOC: M RAD 11:35
PROVIDERS: ATTEND Physician Assistant
DX: R91.1 Solitary pulmonary nodule (principal)

== ENCOUNTER → 2022-10-18 | Outpatient (CLI) | payer OTHER ==
[~2022-10-18] MED LIST changes: -ISOVUE-370 76% 100ML VIAL As Ordered ONE
== END ==
LOC: M SLEEP HO 11:36
PROVIDERS: ATTEND Internal Medicine Pulmonary Disease
DX: R06.83 Snoring (principal)

== ENCOUNTER → 2022-11-08 | Outpatient (CLI) | payer OTHER | LOC: M RAD 14:17 | PROVIDERS: ATTEND Internal Medicine Pulmonary Disease | DX: I82.411 Acute embolism and thrombosis of right femoral vein (principal) ==

== ENCOUNTER → 2023-01-09 | Outpatient (CLI) | payer OTHER ==
[2023-01-09 14:44] LABS: HEMATOCRIT 44.5 % (42.0-52.0); HEMOGLOBIN 14.6 g/dl (13.5-17.5); MEAN CORPUSCULAR HEMOGLOBIN 29.1 pg (27.0-33.0); MEAN CORPUSCULAR HGB CONC 32.8 g/dl (32.0-36.5); MEAN CORPUSCULAR VOLUME 88.8 fl (80.0-96.0); PLATELET COUNT, AUTOMATED 215 10^3/uL (150-450); RED BLOOD COUNT 5.01 10^6/uL (4.30-6.10); WHITE BLOOD COUNT 5.6 10^3/uL (4.0-10.0)
[2023-01-09 15:20] LABS: ALBUMIN 3.8 G/DL (3.2-5.2); ALKALINE PHOSPHATASE 100 U/L (46-116); ALT/SGPT 27 U/L (7.0-40); AST/SGOT 19 U/L (<34); BILIRUBIN,TOTAL 0.6 MG/DL (0.3-1.2); BLOOD UREA NITROGEN 24 MG/DL (9-23); CALCIUM LEVEL 8.8 MG/DL (8.5-10.1); CARBON DIOXIDE LEVEL 27 MMOL/L (20-31); CHLORIDE LEVEL 107 MMOL/L (98-107); CHOLESTEROL LEVEL 146 MG/DL (<200); CHOLESTEROL RISK RATIO 3.54 (<5); CREATININE FOR GFR 1.29 MG/DL (0.70-1.30); GLOMERULAR FILTRATION RATE > 60.0 (>56); GLUCOSE, FASTING 103 MG/DL (60-100); HDL CHOLESTEROL 41.2 MG/DL (>40); LDL CHOLESTEROL 86.8 MG/DL (<100); NON-HDL-C 104.8 MG/DL; POTASSIUM SERUM 4.6 MMOL/L (3.5-5.1); SODIUM LEVEL 140 MMOL/L (136-145); TOTAL PROTEIN 6.7 G/DL (5.7-8.2); TRIGLYCERIDES LEVEL 90 MG/DL (<150)
== END ==
LOC: M PLALAB 10:15
PROVIDERS: ATTEND Nurse Practitioner Family
DX: R06.09 Other forms of dyspnea (principal); E78.00 Pure hypercholesterolemia, unspecified

== ENCOUNTER → 2023-01-26 | Outpatient (REF) | payer OTHER | LOC: M SFHCADAM 08:14 | PROVIDERS: ATTEND Physician Assistant | DX: Z53.9 Procedure and treatment not carried out, unspecified reason (principal) ==

== ENCOUNTER → 2023-03-29 | Outpatient (REF) | payer OTHER ==
[2023-03-29 14:32] LABS: BASO # 0.1 10^3/uL (0.0-0.2); EOS # 0.2 10^3/uL (0.0-0.5); EOS % 2.9 % (0.0-3.0); HEMOGLOBIN 14.9 g/dl (13.5-17.5); LYMPH # 1.1 10^3/uL (1.5-5.0); LYMPH % 15.6 % (24.0-44.0); MEAN CORPUSCULAR HEMOGLOBIN 29.2 pg (27.0-33.0); MEAN CORPUSCULAR HGB CONC 31.7 g/dl (32.0-36.5); MONO # 0.6 10^3/uL (0.0-0.8); MONO % 7.6 % (2.0-8.0); NEUTROPHILS # 5.3 10^3/uL (1.5-8.5); NEUTROPHILS % 72.6 % (36.0-66.0); PLATELET COUNT, AUTOMATED 202 10^3/uL (150-450); RED BLOOD COUNT 5.11 10^6/uL (4.30-6.10); WHITE BLOOD COUNT 7.2 10^3/uL (4.0-10.0)
[2023-03-29 14:51] LABS: ALBUMIN 4.1 G/DL (3.2-5.2); ALKALINE PHOSPHATASE 117 U/L (46-116); ALT/SGPT 39 U/L (7.0-40); AST/SGOT 19 U/L (<34); BILIRUBIN,TOTAL 0.5 MG/DL (0.3-1.2); BLOOD UREA NITROGEN 27 MG/DL (9-23); CARBON DIOXIDE LEVEL 28 MMOL/L (20-31); CHLORIDE LEVEL 104 MMOL/L (98-107); CREATININE FOR GFR 1.31 MG/DL (0.70-1.30); GLOMERULAR FILTRATION RATE > 60.0 (>56); GLUCOSE, FASTING 97 MG/DL (60-100); POTASSIUM SERUM 4.7 MMOL/L (3.5-5.1); SODIUM LEVEL 140 MMOL/L (136-145); TOTAL PROTEIN 6.9 G/DL (5.7-8.2)
[2023-03-29 14:57] LABS: HEMOGLOBIN A1c 5.7 % (4.0-6.0)
== END ==
LOC: M SFHCADAM 07:47
PROVIDERS: ATTEND Physician Assistant
DX: I11.9 Hypertensive heart disease without heart failure (principal); Z68.41 Body mass index [BMI] 40.0-44.9, adult; R60.0 Localized edema

== ENCOUNTER → 2023-04-11 | Outpatient (CLI) | payer OTHER | LOC: M RAD 06:51 | PROVIDERS: ATTEND Surgery Vascular Surgery | DX: I82.401 Acute embolism and thrombosis of unspecified deep veins of right lower extremity (principal) ==

== ENCOUNTER → 2023-05-02 | Outpatient (REF) | payer OTHER ==
[2023-05-02 17:13] LABS: BASO # 0.1 10^3/uL (0.0-0.2); BASO % 1.1 % (0.0-1.0); EOS # 0.1 10^3/uL (0.0-0.5); EOS % 1.8 % (0.0-3.0); HEMATOCRIT 43.2 % (42.0-52.0); LYMPH # 2.1 10^3/uL (1.5-5.0); LYMPH % 29.3 % (24.0-44.0); MEAN CORPUSCULAR HEMOGLOBIN 29.2 pg (27.0-33.0); MEAN CORPUSCULAR HGB CONC 32.4 g/dl (32.0-36.5); MEAN CORPUSCULAR VOLUME 90.2 fl (80.0-96.0); MONO # 0.9 10^3/uL (0.0-0.8); MONO % 12.1 % (2.0-8.0); NEUTROPHILS % 55.3 % (36.0-66.0); PLATELET COUNT, AUTOMATED 213 10^3/uL (150-450); RED BLOOD COUNT 4.79 10^6/uL (4.30-6.10); WHITE BLOOD COUNT 7.3 10^3/uL (4.0-10.0)
[2023-05-02 17:15] LABS: CREATININE FOR GFR 1.43 MG/DL (0.70-1.30); GLOMERULAR FILTRATION RATE 54.7 (>56); POTASSIUM SERUM 4.7 MMOL/L (3.5-5.1)
== END ==
LOC: M LABDRWAD 15:56
PROVIDERS: ATTEND Internal Medicine Cardiovascular Disease
DX: Q23.1 Congenital insufficiency of aortic valve (principal)

== ENCOUNTER → 2023-06-15 | Outpatient (REF) | payer OTHER ==
[2023-06-15 14:40] LABS: BASO # 0.1 10^3/uL (0.0-0.2); EOS # 0.2 10^3/uL (0.0-0.5); EOS % 2.5 % (0.0-3.0); HEMATOCRIT 39.8 % (42.0-52.0); HEMOGLOBIN 12.6 g/dl (13.5-17.5); LYMPH # 2.1 10^3/uL (1.5-5.0); LYMPH % 34.7 % (24.0-44.0); MEAN CORPUSCULAR HEMOGLOBIN 28.8 pg (27.0-33.0); MEAN CORPUSCULAR HGB CONC 31.7 g/dl (32.0-36.5); MEAN CORPUSCULAR VOLUME 90.9 fl (80.0-96.0); MONO # 0.7 10^3/uL (0.0-0.8); MONO % 11.9 % (2.0-8.0); NEUTROPHILS % 49.4 % (36.0-66.0); PLATELET COUNT, AUTOMATED 311 10^3/uL (150-450); RED BLOOD COUNT 4.38 10^6/uL (4.30-6.10)
[2023-06-20 07:03] LABS: BLOOD UREA NITROGEN 27 MG/DL (8-27); CALCIUM LEVEL 9.3 MG/DL (8.7-10.3); CARBON DIOXIDE LEVEL 22 mmol/L (20-29); CHLORIDE LEVEL 102 mmol/L (96-106); CREATININE FOR GFR 1.23 MG/DL (0.57-1.00); GLOMERULAR FILTRATION RATE > 60.0 (>59); POTASSIUM SERUM 5.1 mmol/L (3.5-5.2); SODIUM LEVEL 139 mmol/L (134-144)
[2023-06-20 07:04] LABS: GLUCOSE, FASTING 94 MG/DL (70-99)
== END ==
LOC: M SFHCADAM 10:34
PROVIDERS: ATTEND Physician Assistant
DX: I82.511 Chronic embolism and thrombosis of right femoral vein (principal)

== ENCOUNTER → 2023-10-15 | Outpatient (REF) | payer OTHER ==
[2023-10-15 13:15] LABS: BLOOD UREA NITROGEN 19 MG/DL (9-23); CALCIUM LEVEL 8.4 MG/DL (8.5-10.1); CARBON DIOXIDE LEVEL 28 MMOL/L (20-31); CHLORIDE LEVEL 106 MMOL/L (98-107); CREATININE FOR GFR 1.14 MG/DL (0.70-1.30); GLOMERULAR FILTRATION RATE > 60.0 (>56); GLUCOSE, FASTING 154 MG/DL (60-100); POTASSIUM SERUM 4.4 MMOL/L (3.5-5.1); PSA SCREENING 4.68 NG/ML (< 4.00); SODIUM LEVEL 137 MMOL/L (136-145)
[2023-10-15 13:26] LABS: HEMOGLOBIN A1c 5.8 % (4.0-6.0)
== END ==
LOC: M SFHCADAM 09:03
PROVIDERS: ATTEND Physician Assistant
DX: I11.9 Hypertensive heart disease without heart failure (principal); R60.0 Localized edema; R97.20 Elevated prostate specific antigen [PSA]

== ENCOUNTER → 2023-12-18 | Outpatient (CLI) | payer OTHER ==
[2023-12-18 17:26] LABS: HEMATOCRIT 43.3 % (42.0-52.0); HEMOGLOBIN 14.4 g/dl (13.5-17.5); MEAN CORPUSCULAR HEMOGLOBIN 29.3 pg (27.0-33.0); MEAN CORPUSCULAR HGB CONC 33.3 g/dl (32.0-36.5); MEAN CORPUSCULAR VOLUME 88.2 fl (80.0-96.0); PLATELET COUNT, AUTOMATED 221 10^3/uL (150-450); RED BLOOD COUNT 4.91 10^6/uL (4.30-6.10); WHITE BLOOD COUNT 6.7 10^3/uL (4.0-10.0)
[2023-12-18 17:48] LABS: ALBUMIN 3.8 G/DL (3.2-5.2); BILIRUBIN,TOTAL 0.5 MG/DL (0.3-1.2); CALCIUM LEVEL 9.2 MG/DL (8.5-10.1); CREATININE FOR GFR 1.59 MG/DL (0.70-1.30); GLOMERULAR FILTRATION RATE 48.2 (>56); POTASSIUM SERUM 4.1 MMOL/L (3.5-5.1); TOTAL PROTEIN 6.7 G/DL (5.7-8.2)
== END ==
LOC: M PLALAB 14:40
PROVIDERS: ATTEND Nurse Practitioner Family
DX: Z86.711 Personal history of pulmonary embolism (principal)

== ENCOUNTER → 2024-04-21 | Outpatient (REF) | payer OTHER ==
[2024-04-21 13:21] LABS: BASO # 0.1 10^3/uL (0.0-0.2); BASO % 1.4 % (0.0-1.0); EOS # 0.2 10^3/uL (0.0-0.5); EOS % 2.8 % (0.0-3.0); HEMATOCRIT 46.1 % (42.0-52.0); HEMOGLOBIN 15.2 g/dl (13.5-17.5); LYMPH # 1.9 10^3/uL (1.5-5.0); LYMPH % 29.6 % (24.0-44.0); MEAN CORPUSCULAR HEMOGLOBIN 29.8 pg (27.0-33.0); MEAN CORPUSCULAR VOLUME 90.4 fl (80.0-96.0); MONO # 0.6 10^3/uL (0.0-0.8); MONO % 9.6 % (2.0-8.0); NEUTROPHILS # 3.6 10^3/uL (1.5-8.5); NEUTROPHILS % 56.3 % (36.0-66.0); PLATELET COUNT, AUTOMATED 195 10^3/uL (150-450); WHITE BLOOD COUNT 6.4 10^3/uL (4.0-10.0)
[2024-04-21 13:40] LABS: HEMOGLOBIN A1c 5.7 % (4.0-6.0)
[2024-04-21 13:50] LABS: ALBUMIN 4.1 G/DL (3.2-5.2); ALKALINE PHOSPHATASE 98 U/L (46-116); ALT/SGPT 30 U/L (7.0-40); AST/SGOT 22 U/L (<34); BILIRUBIN,TOTAL 0.8 MG/DL (0.3-1.2); BLOOD UREA NITROGEN 27 MG/DL (9-23); CARBON DIOXIDE LEVEL 28 MMOL/L (20-31); CHLORIDE LEVEL 105 MMOL/L (98-107); CHOLESTEROL LEVEL 172 MG/DL (<200); CHOLESTEROL RISK RATIO 3.53 (<5); CREATININE FOR GFR 1.31 MG/DL (0.70-1.30); GLOMERULAR FILTRATION RATE > 60.0 (>56); GLUCOSE, FASTING 89 MG/DL (60-100); HDL CHOLESTEROL 48.6 MG/DL (>40); LDL CHOLESTEROL 104.4 MG/DL (<100); NON-HDL-C 123.4 MG/DL; SODIUM LEVEL 135 MMOL/L (136-145); TOTAL PROTEIN 7.2 G/DL (5.7-8.2); TRIGLYCERIDES LEVEL 95 MG/DL (<150)
== END ==
LOC: M SFHCADAM 10:08
PROVIDERS: ATTEND Physician Assistant
DX: Z86.711 Personal history of pulmonary embolism (principal); Z95.0 Presence of cardiac pacemaker; R73.03 Prediabetes; N40.1 Benign prostatic hyperplasia with lower urinary tract symptoms; E78.2 Mixed hyperlipidemia; I11.9 Hypertensive heart disease without heart failure

== ENCOUNTER → 2024-07-23 | Outpatient (CLI) | payer OTHER, SELFPAY ==
[~2024-07-23] MED LIST changes: +ISOVUE-370 76% 100ML VIAL As Ordered ONE
== END ==
LOC: M RAD 14:37
PROVIDERS: ATTEND Internal Medicine Pulmonary Disease
DX: Z86.711 Personal history of pulmonary embolism (principal)
CPT/HCPCS: 71275; Q9967

== ENCOUNTER → 2024-07-23 | Outpatient (CLI) | payer OTHER, SELFPAY ==
[~2024-07-23] MED LIST changes: -ISOVUE-370 76% 100ML VIAL As Ordered ONE
[2024-07-23 12:30] LABS: BASO # 0.1 10^3/uL (0.0-0.2); BASO % 0.9 % (0.0-1.0); EOS # 0.2 10^3/uL (0.0-0.5); HEMOGLOBIN 14.1 g/dl (13.5-17.5); LYMPH # 1.5 10^3/uL (1.5-5.0); LYMPH % 27.2 % (24.0-44.0); MEAN CORPUSCULAR HEMOGLOBIN 30.2 pg (27.0-33.0); MEAN CORPUSCULAR HGB CONC 33.6 g/dl (32.0-36.5); MEAN CORPUSCULAR VOLUME 89.9 fl (80.0-96.0); MONO # 0.5 10^3/uL (0.0-0.8); MONO % 9.2 % (2.0-8.0); NEUTROPHILS # 3.4 10^3/uL (1.5-8.5); NEUTROPHILS % 59.3 % (36.0-66.0); PLATELET COUNT, AUTOMATED 204 10^3/uL (150-450); RED BLOOD COUNT 4.67 10^6/uL (4.30-6.10); WHITE BLOOD COUNT 5.7 10^3/uL (4.0-10.0)
[2024-07-23 12:51] LABS: INR 1.03; PROTHROMBIN TIME 13.8 SECONDS (12.5-14.5)
[2024-07-23 13:09] LABS: CREATININE FOR GFR 1.34 MG/DL (0.70-1.30); GLOMERULAR FILTRATION RATE 58.5 (>56)
== END ==
LOC: M LAB 12:05
PROVIDERS: ATTEND Internal Medicine Pulmonary Disease
DX: I82.501 Chronic embolism and thrombosis of unspecified deep veins of right lower extremity (principal); Z86.711 Personal history of pulmonary embolism

== ENCOUNTER → 2024-09-08 | Outpatient (CLI) | payer OTHER | LOC: M RAD 11:55 | PROVIDERS: ATTEND Internal Medicine Pulmonary Disease | DX: I82.501 Chronic embolism and thrombosis of unspecified deep veins of right lower extremity (principal); R60.0 Localized edema ==

== ENCOUNTER → 2024-10-27 | Outpatient (REF) | payer OTHER ==
[2024-10-27 15:24] LABS: BASO % 0.7 % (0.0-1.0); EOS # 0.1 10^3/uL (0.0-0.5); EOS % 1.9 % (0.0-3.0); HEMATOCRIT 43.8 % (42.0-52.0); HEMOGLOBIN 14.2 g/dl (13.5-17.5); LYMPH # 1.5 10^3/uL (1.5-5.0); LYMPH % 25.6 % (24.0-44.0); MEAN CORPUSCULAR HGB CONC 32.4 g/dl (32.0-36.5); MEAN CORPUSCULAR VOLUME 89.6 fl (80.0-96.0); MONO # 0.5 10^3/uL (0.0-0.8); MONO % 8.2 % (2.0-8.0); NEUTROPHILS # 3.7 10^3/uL (1.5-8.5); NEUTROPHILS % 63.3 % (36.0-66.0); PLATELET COUNT, AUTOMATED 222 10^3/uL (150-450); RED BLOOD COUNT 4.89 10^6/uL (4.30-6.10); WHITE BLOOD COUNT 5.9 10^3/uL (4.0-10.0)
[2024-10-30 19:31] LABS: BERMUDA GRASS IGE < 0.10 kU/L (<0.10); BIRCH IGE < 0.10 kU/L (<0.10); COMMON RAGWEED SHORT IGE < 0.10 kU/L (<0.10); D001 IGE D PTERONYSSINUS < 0.10 kU/L (<0.10); D002-IGE D FARINAE < 0.10 kU/L (<0.10); E001-IGE CAT DANDER < 0.10 kU/L (<0.10); E005-IGE DOG DANDER < 0.10 kU/L (<0.10); ELM IGE < 0.10 kU/L (<0.10); I006 IGE COCKROACH < 0.10 kU/L (<0.10); M002 IGE CLADOSPORIUM HERBARU < 0.10 kU/L (<0.10); M003 IGE ASPERGILLUS FUMIGATU < 0.10 kU/L (<0.10); M006 IGE ALTERNIA ALTERNATA < 0.10 kU/L (<0.10); M1-PENICILLIUM NOTATUM < 0.10 kU/L (<0.10); MOUSE URINE IGE < 0.10 kU/L (<0.10); MUGWORT IGE < 0.10 kU/L (<0.10); OAK IGE < 0.10 kU/L (<0.10); ROUGH PIGWEED IGE < 0.10 kU/L (<0.10); SHEEP SORREL IGE < 0.10 kU/L (<0.10); SYCAMORE IGE < 0.10 kU/L (<0.10); T001-IGE MAPLE BOX ELDER < 0.10 kU/L (<0.10); T006-IGE MOUNTAIN CEDAR < 0.10 kU/L (<0.10); T014 COTTONWOOD IGE < 0.10 kU/L (<0.10); TIMOTHY GRASS IGE < 0.10 kU/L (<0.10); WALNUT TREE IGE < 0.10 kU/L (<0.10); WHITE ASH IGE < 0.10 kU/L (<0.10); WHITE MULBERRY IGE < 0.10 kU/L (<0.10)
[2024-10-31 20:38] LABS: IMMUNOGLOBULIN E FOR ALLERGENS 10 kU/L (<OR=114)
== END ==
LOC: M LAB REF 12:54
PROVIDERS: ATTEND Internal Medicine Pulmonary Disease
DX: J45.20 Mild intermittent asthma, uncomplicated (principal)

== ENCOUNTER → 2024-11-24 | Outpatient (REF) | payer OTHER ==
[2024-11-24 13:44] LABS: BASO # 0.1 10^3/uL (0.0-0.2); BASO % 1.3 % (0.0-1.0); EOS # 0.2 10^3/uL (0.0-0.5); EOS % 3.3 % (0.0-3.0); HEMATOCRIT 44.4 % (42.0-52.0); HEMOGLOBIN 14.2 g/dl (13.5-17.5); LYMPH # 2.2 10^3/uL (1.5-5.0); LYMPH % 34.7 % (24.0-44.0); MEAN CORPUSCULAR HEMOGLOBIN 29.4 pg (27.0-33.0); MEAN CORPUSCULAR VOLUME 91.9 fl (80.0-96.0); MONO # 0.6 10^3/uL (0.0-0.8); MONO % 9.3 % (2.0-8.0); NEUTROPHILS # 3.3 10^3/uL (1.5-8.5); NEUTROPHILS % 51.1 % (36.0-66.0); PLATELET COUNT, AUTOMATED 224 10^3/uL (150-450); RED BLOOD COUNT 4.83 10^6/uL (4.30-6.10); WHITE BLOOD COUNT 6.4 10^3/uL (4.0-10.0)
[2024-11-24 13:54] LABS: HEMOGLOBIN A1c 5.6 % (4.0-6.0)
[2024-11-24 14:02] LABS: AMYLASE 44 U/L (30-118); LIPASE 39 U/L (12-53)
[2024-11-24 14:04] LABS: ALBUMIN 3.8 G/DL (3.2-5.2); ALKALINE PHOSPHATASE 99 U/L (40-129); ALT/SGPT 52 U/L (7.0-40); AST/SGOT 27 U/L (<34); BILIRUBIN,TOTAL 0.7 MG/DL (0.3-1.2); BLOOD UREA NITROGEN 22 MG/DL (9-23); CALCIUM LEVEL 8.9 MG/DL (8.5-10.1); CARBON DIOXIDE LEVEL 28 MMOL/L (20-31); CHLORIDE LEVEL 103 MMOL/L (98-107); CHOLESTEROL LEVEL 207 MG/DL (<200); CHOLESTEROL RISK RATIO 4.25 (<5); CREATININE FOR GFR 1.12 MG/DL (0.70-1.30); FREE T4 1.21 NG/DL (0.89-1.76); GLOMERULAR FILTRATION RATE > 60.0 (>56); GLUCOSE, FASTING 112 MG/DL (60-100); HDL CHOLESTEROL 48.7 MG/DL (>40); LDL CHOLESTEROL 137.9 MG/DL (<100); NON-HDL-C 158.3 MG/DL; POTASSIUM SERUM 5.1 MMOL/L (3.5-5.1); PSA SCREENING 6.93 NG/ML (< 4.00); SODIUM LEVEL 137 MMOL/L (136-145); THYROID STIMULATING HORMONE 2.249 uIU/ML (0.55-4.78); TRIGLYCERIDES LEVEL 102 MG/DL (<150)
== END ==
LOC: M SFHCADAM 07:57
PROVIDERS: ATTEND Physician Assistant
DX: R10.13 Epigastric pain (principal); I11.9 Hypertensive heart disease without heart failure; Z86.711 Personal history of pulmonary embolism; R73.03 Prediabetes; E78.2 Mixed hyperlipidemia; R53.83 Other fatigue; N40.1 Benign prostatic hyperplasia with lower urinary tract symptoms

== ENCOUNTER → 2024-12-01 | Outpatient (CLI) | payer OTHER | LOC: M WHC 08:06 | PROVIDERS: ATTEND Physician Assistant | DX: R10.13 Epigastric pain (principal); Z86.79 Personal history of other diseases of the circulatory system ==

== ENCOUNTER → 2024-12-03 | Outpatient (REF) | payer OTHER | LOC: M LABWUC 12:55 | PROVIDERS: ATTEND Urology | DX: R97.20 Elevated prostate specific antigen [PSA] (principal) ==

== ENCOUNTER → 2024-12-05 | Outpatient (CLI) | payer OTHER ==
[~2024-12-05] MED LIST changes: +ISOVUE-370 76% 100ML VIAL As Ordered ONE
== END ==
LOC: M RAD 08:23
PROVIDERS: ATTEND Physician Assistant
DX: I82.511 Chronic embolism and thrombosis of right femoral vein (principal); Z86.711 Personal history of pulmonary embolism; R07.81 Pleurodynia; R06.02 Shortness of breath
CPT/HCPCS: 71275; Q9967

== ENCOUNTER → 2025-04-28 | Outpatient (REF) | payer OTHER ==
[~2025-04-28] MED LIST changes: -ISOVUE-370 76% 100ML VIAL As Ordered ONE
[2025-04-28 19:14] LABS: CREATININE FOR GFR 1.56 MG/DL (0.70-1.30); GLOMERULAR FILTRATION RATE 51.5 (>56)
== END ==
LOC: M LAB REF 17:47
PROVIDERS: ATTEND Internal Medicine Pulmonary Disease
DX: J45.50 Severe persistent asthma, uncomplicated (principal)

== ENCOUNTER → 2025-08-03 | Outpatient (REF) | payer OTHER ==
[2025-08-03 12:41] LABS: IRON (FE) 91.0 UG/DL (65-175); PERCENT SATURATION 28.9 % (19.7-50.0)
[2025-08-03 12:42] LABS: LUTEINIZING HORMONE 3.2 mIU/ML (1.5-9.3); PROLACTIN 4.61 NG/ML (2.1-17.7)
[2025-08-03 12:43] LABS: TESTOSTERONE 452.0 NG/DL (241-827)
[2025-08-03 13:32] LABS: VITAMIN B12 LEVEL 555.0 PG/ML (211-911)
== END ==
LOC: M LAB REF 11:58
PROVIDERS: ATTEND Internal Medicine
DX: R06.00 Dyspnea, unspecified (principal); R53.83 Other fatigue; R41.3 Other amnesia; R68.82 Decreased libido